=== PATIENT | male | born 1980 | race African-American/Black ===

== ENCOUNTER 2019-01-29 05:22 | Emergency (ER) | payer MEDICAID ==
[~2019-01-29] VITALS: Ht 180.3 cm; Wt 75.0 kg
[2019-01-29 06:48] LABS: BASOPHILS % 0.4 % (0.0-2.0); EOSINOPHILS % 1.6 % (0.0-5.0); HEMATOCRIT. 45.8 % (42.0-52.0); HEMOGLOBIN. 15.6 g/dL (14.0-18.0); LYMPHOCYTES % 25.6 % (20.0-50.0); MEAN CORPUSCULAR HEMOGLOBIN 27.5 pg (28.0-32.0); MEAN CORPUSCULAR VOLUME 80.8 fL (80.0-94.0); MEAN PLATELET VOLUME 9.9 fl (7.4-10.4); MONOCYTES % 6.6 % (2.0-8.0); NEUTROPHILS % 65.8 % (40.0-76.0); PLATELET 198 x1000/uL (130-400); RED BLOOD CELL COUNT 5.67 mill/uL (4.7-6.1)
[2019-01-29 06:52] LABS: CHLORIDE 105 mEq/L (98-107)
[2019-01-29 06:55] LABS: ETHANOL BLOOD 156 mg/dL
[2019-01-29 06:58] LABS: CLARITY URINE CLEAR (CLEAR); COLOR URINE YELLOW (YELLOW); KETONES URINE NEGATIVE (NEGATIVE); LEUKOCYTE ESTERASE URINE NEGATIVE (NEGATIVE); NITRITE URINE NEGATIVE (NEGATIVE); OCCULT BLOOD URINE NEGATIVE (NEGATIVE); PROTEIN URINE NEGATIVE (NEGATIVE); SPECIFIC GRAVITY URINE 1.019 (1.005-1.030); UROBILINOGEN URINE 0.2 E.U./dL (0.2-1.0)
[2019-01-29] MEDS ORDERED: OLANZAPINE 10MG TABLET PO STA (07:24)
[2019-01-29 07:34] LABS: *BARBITURATES SCREEN URINE NEGATIVE (NEGATIVE); *BENZODIAZEPINES SCREEN URINE NEGATIVE (NEGATIVE); *COCAINE SCREEN URINE NEGATIVE (NEGATIVE); CANNABINOID URINE SCREEN PRESUMTIVE POSITIVE (NEGATIVE); METHADONE URINE SCREEN NEGATIVE (NEGATIVE); OPIATES URINE SCREEN NEGATIVE (NEGATIVE); PHENCYCLIDINE URINE SCREEN NEGATIVE (NEGATIVE)
[2019-01-29 07:35] LABS: *AMPHETAMINES SCREEN URINE PRESUMTIVE POSITIVE (NEGATIVE)
[2019-01-30] MEDS: OLANZAPINE 10MG TABLET PO SCH ×3 (08:10→18:10)
[2019-01-31] MEDS: OLANZAPINE 10MG TABLET PO SCH (09:34)
[2019-01-31 16:13] VITALS: BP 118/72
== END 2019-01-31 17:01 | disposition home or self-care (01) ==
LOC: ER 05:22
DX: T43.621A Poisoning by amphetamines, accidental (unintentional), initial encounter (principal); F15.151 Other stimulant abuse with stimulant-induced psychotic disorder with hallucinations; T40.7X1A Poisoning by cannabis (derivatives), accidental (unintentional), initial encounter; F12.151 Cannabis abuse with psychotic disorder with hallucinations; F20.89 Other schizophrenia; R45.851 Suicidal ideations; Y92.89 Other specified places as the place of occurrence of the external cause
CPT/HCPCS: 36415; 80305; 80320; 81003; 99285; G0480

== ENCOUNTER 2020-05-03 15:13 | Emergency (ER) | payer MEDICAID ==
[~2020-05-03] VITALS: Ht 180.3 cm; Wt 75.0 kg
[2020-05-03 15:15] VITALS: BP 119/98
[2020-05-03] MEDS ORDERED: LORAZEPAM 0.5MG TABLET PO ONE (15:45)
[2020-05-03] MEDS ORDERED: LORA-249 MT (15:55)
== END 2020-05-03 16:05 | disposition home or self-care (01) ==
LOC: ER 15:22
DX: F41.1 Generalized anxiety disorder (principal); R00.2 Palpitations; F20.9 Schizophrenia, unspecified; F12.10 Cannabis abuse, uncomplicated
CPT/HCPCS: 93005; 99283

== ENCOUNTER 2020-05-05 21:40 | Emergency (ER) | payer MEDICAID ==
[~2020-05-05] VITALS: Ht 180.3 cm; Wt 75.0 kg
[~2020-05-05 21:40] MED LIST: LORA-249 MT
[2020-05-05 23:03] LABS: CLARITY URINE CLEAR (CLEAR); COLOR URINE YELLOW (YELLOW); KETONES URINE NEGATIVE (NEGATIVE); LEUKOCYTE ESTERASE URINE NEGATIVE (NEGATIVE); NITRITE URINE NEGATIVE (NEGATIVE); OCCULT BLOOD URINE NEGATIVE (NEGATIVE); PROTEIN URINE NEGATIVE (NEGATIVE); SPECIFIC GRAVITY URINE 1.021 (1.005-1.030); UROBILINOGEN URINE 0.2 E.U./dL (0.2-1.0)
[2020-05-05 23:17] LABS: BASOPHILS % 0.3 % (0.0-2.0); EOSINOPHILS % 0.9 % (0.0-5.0); HEMOGLOBIN. 13.1 g/dL (14.0-18.0); LYMPHOCYTES % 20.9 % (20.0-50.0); MEAN CORPUSCULAR HEMOGLOBIN 28.2 pg (28.0-32.0); MEAN PLATELET VOLUME 9.4 fl (7.4-10.4); MONOCYTES % 6.8 % (2.0-8.0); NEUTROPHILS % 71.1 % (40.0-76.0); PLATELET 144 x1000/uL (130-400); RED BLOOD CELL COUNT 4.64 mill/uL (4.7-6.1); RED CELL DISTRIBUTION WIDTH 14.7 % (11.6-14.6)
[2020-05-05 23:32] LABS: CHLORIDE 104 mEq/L (98-107)
[2020-05-05 23:37] LABS: ETHANOL BLOOD < 10 mg/dL
[2020-05-06 00:03] LABS: *AMPHETAMINES SCREEN URINE NEGATIVE (NEGATIVE); *BARBITURATES SCREEN URINE NEGATIVE (NEGATIVE)
[2020-05-06 00:04] LABS: *BENZODIAZEPINES SCREEN URINE NEGATIVE (NEGATIVE); *COCAINE SCREEN URINE NEGATIVE (NEGATIVE); METHADONE URINE SCREEN NEGATIVE (NEGATIVE); OPIATES URINE SCREEN NEGATIVE (NEGATIVE); PHENCYCLIDINE URINE SCREEN NEGATIVE (NEGATIVE)
[2020-05-06 00:06] LABS: CANNABINOID URINE SCREEN NEGATIVE (NEGATIVE)
[2020-05-06 10:00] VITALS: BP 113/71
[2020-05-06] MEDS ORDERED: OLANZAPINE 5MG TABLET PO STA (10:40)
== END 2020-05-06 12:18 | disposition home or self-care (01) ==
LOC: ER 21:40
DX: R45.851 Suicidal ideations (principal); F12.10 Cannabis abuse, uncomplicated; F20.9 Schizophrenia, unspecified
CPT/HCPCS: 36415; 80053; 80305; 80307; 80320; 80329; 81003; 85025; 93005; 99285; G0480